=== PATIENT | female | born 2000 ===

== ENCOUNTER 2020-05-25 03:17 | Inpatient (IN) ==
[2020-05-25 05:17] LABS: ABS Eosinophils 0.1 10^3/ul (0-0.6); ABS Monocytes 1.1 10^3/ul (0-0.8); Eosinophil % 0.6 %; Hematocrit 36 % (35-47); Hemoglobin 11.2 g/dL (12.0-16.0); Lymphocyte % 16.4 %; Mean Corpuscular HGB Conc 32 g/dL (31-36); Mean Corpuscular Hemoglobin 24 pg (27-31); Mean Corpuscular Volume 75 fL (80-97); Platelet Count 261 10^3/uL (150-450); Red Blood Count 4.75 10^6 /uL (3.70-4.87); Red Cell Distribution Width 16 % (10-15); White Blood Count 12.3 10^3/uL (3.5-10.8)
[2020-05-25 05:34] LABS: ALT 8 U/L (7-52); AST 13 U/L (13-39); Albumin 4.6 g/dL (3.2-5.2); Albumin/Globulin Ratio 1.4 (1-3); Alkaline Phosphatase 40 U/L (34-104); Anion Gap 8 mmol/L (2-11); BUN/Creatinine Ratio 15.9 (8-20); Blood Urea Nitrogen 13 mg/dL (6-24); CO2 Carbon Dioxide 24 mmol/L (22-32); Calcium 9.7 mg/dL (8.6-10.3); Chloride 107 mmol/L (101-111); EGFR African American 107.5 (>60); EGFR Non-African American 88.9 (>60); Globulin 3.3 g/dL (2-4); Glucose 105 mg/dL (70-100); Potassium 3.7 mmol/L (3.5-5.0); Sodium 139 mmol/L (135-145); Total Protein 7.9 g/dL (6.4-8.9)
[2020-05-25 05:37] LABS: Acetaminophen < 15 mcg/mL; Alcohol, S < 10 mg/dL (<10); Salicylate < 2.50 mg/dL (<30)
[2020-05-25 05:41] LABS: HCG Pregnancy < 0.60 mIU/mL
[2020-05-25 05:53] LABS: TSH Ultra Thyroid Stim Horm 1.53 mcIU/mL (0.34-5.60)
[2020-05-25 07:35] LABS: Lithium 0.31 mmol/L (0.6-1.2)
[2020-05-25] MEDS ORDERED: LORazepam 2 mg VIAL 1 ml IM ONE (10:45)
[2020-05-25] MEDS ORDERED: Lorazepam PYXIS KEY PRN (10:45)
[2020-05-25] MEDS ORDERED: Haloperidol 5 mg/ml SDV IV/IM 5 MG/ML AMP IM ONE (10:45)
[2020-05-25] MEDS ORDERED: diPHENhydraMINE IV 50 MG/ML 1 ml VIAL (BENADRYL) IM ONE (10:46)
[2020-05-25] MEDS ORDERED: Al Hydrox/Mg Hydrox/Simet LIQ 30 ML UDC PO PRN (16:12)
[2020-05-25] MEDS ORDERED: Vitamin THERAPEUTIC TAB PO SCH (17:00)
[2020-05-26] MEDS: Vitamin THERAPEUTIC TAB PO SCH (12:39)
[2020-05-26] MEDS: LITHIUM PO SCH ×2 (13:07→21:10)
[2020-05-27 08:03] LABS: HDL Cholesterol 50.4 mg/dL
[2020-05-27] MEDS: LITHIUM PO SCH ×2 (08:27→19:33)
[2020-05-27] MEDS: Vitamin THERAPEUTIC TAB PO SCH (08:28)
[2020-05-28] MEDS: LITHIUM PO SCH ×2 (08:53→20:17)
[2020-05-28] MEDS: Vitamin THERAPEUTIC TAB PO SCH (08:53)
[2020-05-28] MEDS: risperiDONE-M 1 mg Oradis TAB PO SCH (20:17)
[2020-05-28 20:32] LABS: Urine Appearance Clear; Urine Bilirubin Negative (Negative); Urine Blood Negative (Negative); Urine Color Yellow; Urine Glucose Negative (Negative); Urine Ketones Negative (Negative); Urine Nitrite Negative (Negative); Urine Protein Negative (Negative); Urine Specific Gravity 1.012 (1.010-1.030); Urine Urobilinogen Negative (Negative)
[2020-05-28 21:00] LABS: Urine Benzodiazepine Screen None Detected (None Detect); Urine Cannabinoids Screen None Detected (None Detect); Urine Opiates Screen None Detected (None Detect)
[2020-05-29] MEDS: Vitamin THERAPEUTIC TAB PO SCH (09:51)
[2020-05-29] MEDS: risperiDONE-M 1 mg Oradis TAB PO SCH ×2 (09:51→20:13)
[2020-05-29] MEDS: LITHIUM PO SCH ×2 (09:52→20:11)
[2020-05-30] MEDS: Vitamin THERAPEUTIC TAB PO SCH (09:15)
[2020-05-30] MEDS: risperiDONE-M 1 mg Oradis TAB PO SCH ×2 (09:15→20:37)
[2020-05-30] MEDS: LITHIUM PO SCH ×2 (09:17→20:38)
[2020-05-31] MEDS: Vitamin THERAPEUTIC TAB PO SCH (09:11)
[2020-05-31] MEDS: risperiDONE-M 1 mg Oradis TAB PO SCH ×2 (09:11→20:38)
[2020-05-31] MEDS: LITHIUM PO SCH ×2 (09:11→20:34)
[2020-06-01] MEDS: Vitamin THERAPEUTIC TAB PO SCH (09:11)
[2020-06-01] MEDS: risperiDONE-M 1 mg Oradis TAB PO SCH ×2 (09:12→20:11)
[2020-06-01] MEDS: LITHIUM PO SCH ×2 (09:13→20:11)
[2020-06-02] MEDS: risperiDONE-M 1 mg Oradis TAB PO SCH (09:12)
[2020-06-02] MEDS: LITHIUM PO SCH (09:12)
[2020-06-02] MEDS: Vitamin THERAPEUTIC TAB PO SCH (09:12)
[2020-06-02 12:00] VITALS: BP 111/60
== END 2020-06-02 12:00 | disposition home or self-care (01) | DRG 753 ==
LOC: ED 03:17 → BSU 13:33
PROVIDERS: ADMIT Psychiatry & Neurology Psychiatry; ATTEND Psychiatry & Neurology Psychiatry